=== PATIENT | female | born 1980 | race Caucasian/White ===

== ENCOUNTER 2016-05-22 05:33 | Inpatient (IN) | payer OTHER ==
[2016-05-22] MEDS ORDERED: LR 500 ML IV ONE (05:44)
[2016-05-22] MEDS ORDERED: CITRIC ACID/SODIUM CITRATE 30 ML UDCUP PO ONE (05:44)
[2016-05-22] MEDS ORDERED: AMMONIA AROMATIC 1 EACH AMP IH ONE (05:48)
[2016-05-22] MEDS ORDERED: TERBUTALINE SULFATE 1 MG/ML VIAL ONE (05:48)
[2016-05-22] MEDS ORDERED: MISOPROSTOL 200 MCG TAB ONE (05:48)
[2016-05-22] MEDS ORDERED: OXYTOCIN 10 UNIT/ML VIAL ONE (05:51)
[2016-05-22] MEDS ORDERED: LR 1,000 ML IV SCH (06:00)
[2016-05-22] MEDS ORDERED: ceFAZolin 2 GM/DEXTROSE 100 ML IV ONE (06:03)
[2016-05-22 06:17] LABS: % IMMATURE GRANULYOCYTES 0.9 % (0.0-1.1); ABSOLUTE IMMATURE GRANULOCYTES 0.09 10^3/uL (0.00-0.10); ADD DIFF? NO; ADD MORPH? NO; ADD SCAN? NO; ATYPICAL LYMPHOCYTE FLAG 0 (0-99); FRAGMENT RBC FLAG 0 (0-99); HEMATOCRIT 39.1 % (38.0-47.0); HEMOGLOBIN 12.8 g/dL (12.6-16.3); LEFT SHIFT FLG 0 (0-99); LIPEMIA HEMOLYSIS FLAG 80 (0-99); MEAN CELL HEMOGLOBIN 23.4 pg (27.9-34.1); MEAN CELL HEMOGLOBIN CONCENTR. 32.7 g/dL (32.4-36.7); MEAN CELL VOLUME 71.6 fL (81.5-99.8); MEAN PLATELET VOLUME 12.6 fL (8.7-11.7); PLATELET CLUMPS FLAG 0 (0-99); PLATELET COUNT 195 10^3/uL (150-400); RED BLOOD CELL COUNT 5.46 10^6/uL (4.18-5.33); RED CELL DISTRIBUTION WIDTH 14.9 % (11.5-15.2)
[2016-05-22] MEDS ORDERED: morphINE PF 5 MG/10 ML INJ ONE ×2 (07:31→07:32)
[2016-05-22] MEDS ORDERED: fentaNYL 100 MCG/2 ML INJ ONE (07:32)
[2016-05-22] MEDS ORDERED: SIMETHICONE 80 MG TAB CHEW PO PRN (07:46)
[2016-05-22] MEDS ORDERED: OXYTOCIN 100 UNITS/10 ML VIAL ONE (08:07)
[2016-05-22] MEDS ORDERED: PHENYLEPHRINE HCL 100 MCG/ML SYR ONE (08:07)
[2016-05-22] MEDS ORDERED: ONDANSETRON 4 MG/2 ML VIAL ONE (08:09)
[2016-05-22] MEDS ORDERED: PHENYLEPHRINE HCL 100 MCG/ML SYR IVP PRN (09:02)
[2016-05-22] MEDS ORDERED: NALOXONE HCL 0.4 MG/ML INJ IVP PRN (09:02)
[2016-05-22] MEDS ORDERED: ONDANSETRON 4 MG/2 ML VIAL IVP PRN (09:02)
--- NOTE | 2016-05-22 09:08 | PREANESOB ---
Obstetric Pre-Anesthesia Info - General Info Proposed Procedure: Repeat C Section. : 3 Para: 1 WBD: 39 - Info Status: Full Term Monitors: External FHR Baseline (bpm): 145 FHR Pattern: Reassuring - Labor Status Section History: Repeat Indications for Current Section: Elective/Repeat Labor Epidural: No Anesthesia ROS: Prior epidural for labor and C Section. Allergies/Adverse Reactions: Allergy/AdvReac Type Severity Reaction Status Date / Time Sulfa (Sulfonamide Allergy Intermediate Rash Verified 09/21/10 16:25 Antibiotics) Home Medications: Medication Instructions Recorded HYDROmorphone HCL [Dilaudid 2 mg 2 - 4 mg PO Q4 PRN #45 tab 05/23/14 (*)] Ibuprofen [Motrin (*)] 600 mg PO Q6 PRN #30 tab 05/23/14 Aspirin [Aspirin 81mg (*)] 05/22/16 Vit #76/Iron,Carb/FA [Pnv 1 each PO 05/22/16 29-1 Tablet] Visit Medications: Generic Name Dose Route Start Last Admin Trade Name Freq PRN Reason Stop Dose Admin Hydrocodone Bitart/Acetaminophen 1 - 2 tab 05/22/16 07:46 [place] 5/325 PO 06/01/16 07:45 Q4HRS PRN Pain, Moderate Diphenhydramine HCl 25 - 50 mg 05/22/16 09:02 Benadryl Injection IVP 11/18/16 09:01 Q6HRS PRN Itching Docusate Sodium 100 mg 05/22/16 07:46 Colace PO 11/18/16 07:45 BID PRN Constipation Lactated Ringer's 1,000 mls @ 125 mls/hr 05/22/16 06:00 Lr IV 11/18/16 05:59 CONT ESAU Ibuprofen 600 mg 05/22/16 07:46 Motrin PO 11/18/16 07:45 Q6HRS PRN Inflammation Ketorolac Tromethamine 30 mg 05/22/16 12:00 Toradol IVP 05/23/16 06:01 Q6HRS ESAU Naloxone HCl 0.4 mg 05/22/16 09:02 Narcan IVP 05/23/16 09:03 PRN PRN respiratory depression Ondansetron HCl 4 mg 05/22/16 09:02 Zofran IVP 11/18/16 09:01 Q4HRS PRN Nausea/Vomiting, Can't Take PO Phenylephrine HCl 100 mcg 05/22/16 09:02 Gurwinder-Synephrine IVP 05/22/16 10:02 Q1M PRN Hypotension Simethicone 80 mg 05/22/16 07:46 Mylicon PO 11/18/16 07:45 .TIDMEALS AND HS PRN Gas Discontinued Medications Generic Name Dose Route Start Last Admin Trade Name Sam[place] PRN Reason Stop Dose Admin Ammonia (Aromatic Spirit) Confirm 05/22/16 05:48 Ammonia Aromatic Administered 05/22/16 05:49 Dose 1 each IH .STK-MED ONE Citric Acid/Sodium Citrate 30 ml 05/22/16 05:44 Bicitra PO 05/22/16 05:45 ONCALL ONE Ephedrine Sulfate Confirm 05/22/16 05:48 Ephedrine Sulfate Administered 05/22/16 05:49 Dose 50 mg .ROUTE .STK-MED ONE Fentanyl Confirm 05/22/16 07:32 Sublimaze Administered 05/22/16 07:33 Dose 100 mcg .ROUTE .STK-MED ONE Lactated Ringer's 500 mls @ 0 mls/hr 05/22/16 05:44 Lr IV 05/22/16 05:45 ONCE ONE As Directed Cefazolin Sodium/Dextrose 100 mls @ 200 mls/hr 05/22/16 06:03 Ancef 2 Gm (Premix) IV 05/22/16 06:32 ONCALL ONE Protocol Misoprostol Confirm 05/22/16 05:48 Cytotec Administered 05/22/16 05:49 Dose 1,000 mcg .ROUTE .STK-MED ONE Morphine Sulfate Confirm 05/22/16 07:31 Morphine Pf 5 Mg/10 Ml Administered 05/22/16 07:32 Dose 5 mg .ROUTE .STK-MED ONE Morphine Sulfate Confirm 05/22/16 07:32 Morphine Pf 5 Mg/10 Ml Administered 05/22/16 07:33 Dose 5 mg .ROUTE .STK-MED ONE Ondansetron HCl Confirm 05/22/16 08:09 Zofran Administered 05/22/16 08:10 Dose 8 mg .ROUTE .STK-MED ONE Oxytocin Confirm 05/22/16 05:51 Pitocin Administered 05/22/16 05:52 Dose 30 unit .ROUTE .STK-MED ONE Oxytocin Confirm 05/22/16 08:07 Pitocin Administered 05/22/16 08:08 Dose 100 units .ROUTE .STK-MED ONE Phenylephrine HCl Confirm 05/22/16 08:07 Gurwinder-Synephrine Administered 05/22/16 08:08 Dose 1,000 mcg .ROUTE .STK-MED ONE Terbutaline Sulfate Confirm 05/22/16 05:48 Brethine Administered 05/22/16 05:49 Dose 1 mg .ROUTE .STK-MED ONE - Anesthesia History Response to Local Anesthetics: Normal Anesthesia & Operative History: No Prior Problems Family Anesthesia History: Negative - Social History Substance Use/Abuse: Denies - Focused Exam Blood Pressure: 120/70 Heart Rate: 66 Respiratory Rate: 17 Height/Weight (Nursing): Height 162.56 cm Weight 70.307 kg Physical Exam: Within normal limits. ASA Status: II Labs: 05/22/16 06:00 Patient ABO/Rh O NEGATIVE 05/22/16 06:00 - Plan Anesthetic Plan: SAB Consent Signed and on Chart: Yes Patient/Guardian Understands and Agrees to Plan: Yes
--- NOTE | 2016-05-22 09:12 | POSTANESTH ---
Post Anesthetic Evaluation Cardiovascular Status: Normal, Stable Respiratory Status: Normal, Stable, Similar to Pre-op Cond. Level of Consciousness/Mental Status: Can Participate in Eval, Alert and Oriented Pain Control: Adequate, Prn Tx Ordered Nausea/Vomiting Control: Adequate, Prn Tx Ordered Complications Possibly Related to Anesthesia: None Noted (Tolerated spinal well , BP treated, comfortable for surgery, to PACU, no pain or nausea.)
--- NOTE | 2016-05-22 09:28 | GOP ---
[f rep st] OPERATIVE REPORT DATE OF OPERATION: 05/22/2016 SURGEON: Kay Holt MD BONBON DIPPER: Le Bhagat MD. ANESTHESIA: Spinal. PREOPERATIVE DIAGNOSIS: Intrauterine at 39-2/7 weeks' gestation with previous section, desires repeat. POSTOPERATIVE DIAGNOSIS: Intrauterine at 39-2/7 weeks' gestation with previous section, desires repeat. PROCEDURE PERFORMED: Repeat low transverse section. FINDINGS: Viable female infant, Apgars 8 and 9. Normal uterus, fallopian tubes , and ovaries. SPECIMENS: None. ESTIMATED BLOOD LOSS: 700 mL. INDICATIONS: The patient is a 35-year-old, G3, P1, female who had a previous section and desired repeat section. DESCRIPTION OF PROCEDURE: The patient was taken to the operating room. She was prepped and draped in normal sterile fashion in the dorsal supine position with leftward tilt. A surgical time-out was performed verifying the patient's name, date of , planned procedure, and site. The patient received 2 g of Ancef preoperatively. A Pfannenstiel skin incision was made with a scalpel and carried through to the underlying fascia. The fascia was incised in the midline and extended laterally. The superior aspect of the fascia was grasped with Chris clamps. The rectus muscles dissected off bluntly and with the Bovie cautery. The inferior aspect of the fascia was grasped with Chris clamps. The rectus muscles dissected off bluntly and with the Bovie cautery. The peritoneum was identified and entered in bluntly. The bladder blade was placed. The vesicouterine peritoneum was incised with the Metzenbaum scissors, and the bladder flap created digitally. The bladder blade was replaced. The uterus was incised. The uterine incision was extended laterally with blunt dissection. The amniotic sac was ruptured. The was delivered. The cord was clamped and cut. The was handed to the waiting nurse practitioner. The uterus was exteriorized and cleared of all clots and debris. The uterine incision was reapproximated with 0 Monocryl in a running, locked fashion. The gutters were cleared of all clots and debris. The uterus was returned to the abdomen. The uterine incision was reinspected and noted to be hemostatic. The subfascial spaces were inspected and noted to be hemostatic. The fascia was reapproximated with 0 Vicryl in a running fashion. The skin was closed with 4-0 Monocryl. All counts were correct x2. COMPLICATIONS: None. OUTCOME: Stable to recovery room. /[id number]/MODL MTDD
[2016-05-22] MEDS: KETOROLAC 30 MG/1 ML SDV IVP SCH ×3 (10:20→22:41)
[2016-05-22] MEDS: HYDROCODONE/APAP 5/325 TAB PO PRN ×2 (11:55→16:44)
[2016-05-22] MEDS ORDERED: SCOPOLAMINE HYDROBROMIDE 1.5 MG PATCH TD ONE ×2 (17:46→17:56)
[2016-05-23] MEDS: KETOROLAC 30 MG/1 ML SDV IVP SCH (04:37)
[2016-05-23] MEDS: IBUPROFEN 600 MG TAB PO PRN ×3 (10:10→22:08)
[2016-05-23] MEDS: DOCUSATE SODIUM 100 MG CAP PO PRN ×2 (10:10→19:51)
--- NOTE | 2016-05-23 11:42 | SOAPPROG ---
SOAP Progress Note Assessment/Plan: Assessment: POD#1, recovering appropriately Rh neg, Rhogam given Rub imm. S/p tdap and flu vaccines Plan: Routine post-op care Pt desires home on POD#2 Pain control with [place] and Motrin She will monitor voiding, discussed possible need for short term catheter if she isn't able to empty, she may be sensitive to narcotics causing mild retention, she will monitor but feels she is fully emptying at this time. 05/23/16 11:38 05/23/16 11:42 Subjective: Minimal sleep. Milk hasn't come in yet but getting some colostrum. Hoping for home tomorrow. Has abd binder from home, will try it. Ambulating. Voiding, able to empty bladder but takes some effort, this is normal for her outside of , exacerbated now, same as after prior C/S. No heavy bleeding. Pain controlled with Motrin and [place] Objective: Vital Signs Temp Pulse Resp BP Pulse Ox 37.1 C 56 L 17 104/59 L 97 05/23/16 09:35 05/23/16 09:35 05/23/16 09:35 05/23/16 09:35 05/23/16 09:35 Laboratory Results 05/23/16 06:20 05/22/16 05/23/16 05/24/16 05:59 05:59 05:59 Intake Total 0 Output Total 4100 Balance -4100 Gen: NAD Breasts: soft Resp: unlabored CV: reg rate Abd: soft, appropriately distended, appropriately TTP Incision: steri strips with light staining Ext: no edema ICD10 Worksheet Patient Problems: Problems Problem Status Onset delivery delivered Acute - ICD10 Problem Qualifiers (1) delivery delivered
[2016-05-23] MEDS: HYDROCODONE/APAP 5/325 TAB PO PRN ×2 (12:13→19:51)
[2016-05-23] MEDS ORDERED: PATCH REMOVAL 1 EA PATCH TD ONE (17:56)
[2016-05-23 19:18] VITALS: RESP 14
[2016-05-24] MEDS: HYDROCODONE/APAP 5/325 TAB PO PRN ×3 (01:49→11:45)
[2016-05-24 03:31] VITALS: BP 104/64; PULSE 62; TEMP 98.1; O2SAT 96
[2016-05-24] MEDS: IBUPROFEN 600 MG TAB PO PRN ×2 (04:04→10:39)
[2016-05-24] MEDS: DOCUSATE SODIUM 100 MG CAP PO PRN (07:31)
--- NOTE | 2016-05-24 11:00 | OBGCSDC ---
General Delivery Information - General Info : 3 Para: 2 Delivery Date: 05/22/16 Delivery Physician/CNM: Leslie Cheng Labs: Patient ABO/Rh O NEGATIVE 05/22/16 06:00 Hct 34.0 % (38.0-47.0) L 05/23/16 06:20 - Info A George Weight (gm): 3410 g Sex of Infant: Female Score (1 Min): 8 Score (5 Min): 9 Vaginal - Hospital Course Antepartum: Low risk . Rh neg, rhogam given at 28 weeks. Rub imm. Intrapartum: Repeat LTCS : Routine pp care. Rhogam given. Home POD#2, meeting all milestones - Delivery IUP (Weeks): 39 Number of Prior Sections: 1 Indications for Prior Section: Arrest of Dilation Indications for Current Section: Elective/Repeat Procedures: LTCS Intra-op Complications: None Anesthesia: Spinal Medications: : Pitocin Discharge Information - Discharge Information Discharge Medications: Ibuprofen, Vicodin, Other (Specify) (colace) Complications: none Condition: Good Instruction/Follow Up: See Instruction Sheet, Two Weeks Discharge Physician/CNM: Le Bhagat Discharge Date: 05/24/16
== END 2016-05-24 12:32 | disposition home or self-care (01) | DRG 766 ==
LOC: FLD 05:33 → FOB 10:50
PROVIDERS: ADMIT Obstetrics & Gynecology; ATTEND Obstetrics & Gynecology
PROC: 10D00Z1 Extraction of Products of Conception, Low, Open Approach (ICD-10-PCS; principal; 2016-05-22)
DX: O34.219 Maternal care for unspecified type scar from previous cesarean delivery (principal); Z37.0 Single live birth; Z3A.39 39 weeks gestation of pregnancy
CPT/HCPCS: J0690; J1885; J2274; J2370; J2405; J2590; J3010; J3105

== ENCOUNTER → 2016-06-11 | Outpatient (CLI) | payer OTHER | LOC: FLACT 13:12 | PROVIDERS: ATTEND Obstetrics & Gynecology | DX: O91.23 Nonpurulent mastitis associated with lactation (principal); Z39.1 Encounter for care and examination of lactating mother; O92.29 Other disorders of breast associated with pregnancy and the puerperium | CPT/HCPCS: G0463 ==

== ENCOUNTER → 2016-06-17 | Outpatient (CLI) | payer OTHER | LOC: FIMAGING 13:15 | PROVIDERS: ATTEND Obstetrics & Gynecology | DX: N61.0 Mastitis without abscess (principal) ==